=== PATIENT | male | born 2000 | race African-American/Black ===

== ENCOUNTER 2020-01-17 10:31 | Emergency (ER) | payer BC ==
[~2020-01-17] VITALS: Ht 190.5 cm; Wt 104.3 kg
[2020-01-17 10:32] VITALS: BP 140/89
[2020-01-17] MEDS ORDERED: NORCO 5-325 TA1 EAC1 PO (12:35)
== END 2020-01-17 12:27 | disposition home or self-care (01) ==
LOC: ER 10:31
DX: S62.316A Displaced fracture of base of fifth metacarpal bone, right hand, initial encounter for closed fracture (principal); S62.314A Displaced fracture of base of fourth metacarpal bone, right hand, initial encounter for closed fracture; Z98.890 Other specified postprocedural states; Z90.89 Acquired absence of other organs; W22.8XXA Striking against or struck by other objects, initial encounter; Y93.89 Activity, other specified; Y92.89 Other specified places as the place of occurrence of the external cause; Y99.9 Unspecified external cause status